=== PATIENT | male | born 1970 | race Asian ===

== ENCOUNTER 2020-01-16 10:02 | Emergency (ER) | payer SELFPAY ==
[~2020-01-16] VITALS: Ht 167.6 cm; Wt 80.9 kg
[2020-01-16 10:40] VITALS: BP 151/105
== END 2020-01-16 11:26 | disposition home or self-care (01) ==
LOC: EMS 10:03
DX: R05 Cough (principal); F17.210 Nicotine dependence, cigarettes, uncomplicated